=== PATIENT | male | born 1940 | race African-American/Black ===

== ENCOUNTER 2020-02-20 05:04 | Emergency (ER) | payer OTHER ==
[~2020-02-20] VITALS: Ht 177.8 cm; Wt 83.9 kg
[~2020-02-20 05:04] MED LIST: TAMS-12 PO; VALS160T2 PO
--- NOTE | 2020-02-20 05:25 | NUR ---
PT BIBS C/O L ARM/ LEFT LE NUMBNESS AND TINGLING SINCE 3AM, NO NEURO DEFICITS NOTED, TO ER BED 2, VSS. BLOOD DRAWN AND SET TO LAB
[2020-02-20 05:31] LABS: BASOPHILS # (AUTO) 0.1 /CMM (0.0-0.2); BASOPHILS % (AUTO) 0.7 % (0.0-2.0); EOSINOPHILS % (AUTO) 1.5 % (0.0-6.0); HEMATOCRIT 43 % (39-51); HEMOGLOBIN 14.6 g/dL (13.5-17.5); LYMPHOCYTES # (AUTO) 3.6 /CMM (0.8-4.8); MEAN CORPUSCULAR HGB CONC 34 g/dl (31.0-36.0); MEAN CORPUSCULAR VOLUME 91 fL (80-96); MONOCYTES # (AUTO) 0.9 /CMM (0.1-1.30); MONOCYTES % (AUTO) 10.2 % (2.0-12.0); NEUTROPHILS # (AUTO) 3.7 /CMM (1.8-8.9); NEUTROPHILS % (AUTO) 44.6 % (43.0-81.0); PLATELET COUNT (AUTO) 207 /CMM (150-450); RED BLOOD CELL COUNT(AUTO) 4.71 MIL/uL (4.5-6.0); WHITE BLOOD COUNT (AUTO) 8.4 K/uL (4.3-11.0)
[2020-02-20 05:41] LABS: CALCIUM, SERUM 9.3 mg/dL (8.5-10.1); CARBON DIOXIDE 27 mmol/L (21-32); CHLORIDE 101 mmol/L (98-107); CREATININE 1.2 mg/dL (0.6-1.3); GLUCOSE 165 mg/dL (74-106); POTASSIUM 3.5 mmol/L (3.5-5.1); SODIUM SERUM 138 mmol/L (136-145); UREA NITROGEN, BLOOD 18 mg/dL (7-18)
[2020-02-20 06:10] LABS: CHOLESTEROL 197 mg/dL (<200); HDL CHOLESTEROL 41 mg/dL (40-60); LDL 155 mg/dL (0-99); TRIGLYCERIDES 85 mg/dL (30-150)
--- NOTE | 2020-02-20 06:43 | NUR ---
PT REMAINS IN BED, COMPLAINING OF DIZZINESS, HE CLARIFIES THAT HE DOES NOT FEEL NUMB BUT PAIN AND TIGHTNESS, AWARE
--- NOTE | 2020-02-20 07:19 | NUR ---
Patient discharged to home in stable condition. Written and verbal after care instructions given. Patient verbalizes understanding of instruction.IV removed. Catheter intact and site benign. Pressure and 4x4 applied to site. No bleeding noted.
[2020-02-20 07:20] VITALS: BP 132/80
== END 2020-02-20 07:21 | disposition home or self-care (01) ==
LOC: ER 05:07
DX: M62.838 Other muscle spasm (principal); I10 Essential (primary) hypertension; E78.5 Hyperlipidemia, unspecified; E11.9 Type 2 diabetes mellitus without complications; N40.0 Benign prostatic hyperplasia without lower urinary tract symptoms; Z79.899 Other long term (current) drug therapy
CPT/HCPCS: 36415; 70450-TC; 71045-TC; 80048-TC; 80061-TC; 82962-TC; 84484-TC; 85025-TC; 85730-TC